=== PATIENT | female | born 1960 | race Caucasian/White ===

== ENCOUNTER 2021-11-07 21:44 | Emergency (ER) | payer OTHER ==
[2021-11-07] MEDS ORDERED: SYNTHROID25 MCG PO (23:15)
[2021-11-07 23:19] LABS: HEMOGLOBIN 12.1 g/dl (12.0-16.0); MEAN CELL VOLUME 91.6 fL CALC (80.0-100.0); MEAN CORPUSCULAR HGB 29.2 pG CALC (26.0-32.0); MEAN CORPUSCULAR HGB CONC 31.8 g/dL CAL (32.0-36.0); NEUT# 2.16 thou/uL (2.00-7.15); RED BLOOD COUNT 4.15 mill/uL (4.20-5.60); RED CELL DISTRI WIDTH 13.1 % (11.5-15.5)
[2021-11-08] VITALS: BP 125/60
== END 2021-11-08 00:02 | disposition home or self-care (01) | DRG 179 ==
LOC: ED 21:44
PROVIDERS: Family Medicine
DX: U07.1 COVID-19 (principal)

== ENCOUNTER 2022-04-27 17:40 | Emergency (ER) | payer OTHER ==
[~2022-04-27] VITALS: Ht 157.5 cm; Wt 79.5 kg
[~2022-04-27 17:40] MED LIST: SYNTHROID25 MCG PO
[2022-04-27] MEDS ORDERED: MEDDOSEPAK PO (20:15)
[2022-04-27] MEDS ORDERED: METHOCARBAMOL500 MG PO (20:15)
[2022-04-27] MEDS ORDERED: NAPROXEN500 MG PO (20:15)
[2022-04-27 20:19] VITALS: BP 132/73
== END 2022-04-27 20:45 | disposition home or self-care (01) | DRG 74 ==
LOC: ED 17:40
DX: M54.12 Radiculopathy, cervical region (principal); F32.A Depression, unspecified

== ENCOUNTER 2023-06-08 16:54 | Emergency (ER) | payer OTHER ==
[~2023-06-08] VITALS: Ht 157.5 cm; Wt 82.0 kg
[2023-06-08] VITALS (8 sets, daily range): BP systolic 131–151; BP diastolic 64–84
[~2023-06-08 16:54] MED LIST changes: +MEDDOSEPAK PO; +METHOCARBAMOL500 MG PO; +NAPROXEN500 MG PO
[2023-06-08] MEDS ORDERED: MEDDOSEPAK PO (20:11)
[2023-06-08] MEDS ORDERED: TRAMADOL HYDROC50 M1 PO (20:11)
[2023-06-08] MEDS ORDERED: METHOCARBAMOL500 MG PO (20:11)
== END 2023-06-08 20:24 | disposition home or self-care (01) | DRG 74 ==
LOC: ED 16:54
DX: M54.12 Radiculopathy, cervical region (principal)